=== PATIENT | male | born 1980 | race Caucasian/White ===

== ENCOUNTER 2018-07-15 09:48 | Emergency (ER) | payer MEDICAID ==
[2018-07-15] MEDS: DEXAMETHASONE 10 MG/ML 1 ML INJ IM (11:08)
[2018-07-15] MEDS: KETOROLAC 30 MG INJ IM (11:08)
[2018-07-15] MEDS: METHOCARBAMOL 750 MG TAB PO (11:08)
== END 2018-07-15 12:29 | disposition home or self-care (01) ==
LOC: FTE 09:48
DX: M54.5 Low back pain (principal)
CPT/HCPCS: 72100; 96372; 99284-25